=== PATIENT | female | born 1950 | race Caucasian/White ===

== ENCOUNTER 2021-10-21 19:58 | Inpatient (IN) | payer MEDICARE, SELFPAY ==
[2021-10-21] VITALS (8 sets, daily range): BP systolic 94–142; BP diastolic 69–74; PULSE 74–86; RESP 18–20; TEMP 36.9–37.3; O2SAT 82–95; BMI 34.1; BMI 34.3
--- NOTE | 2021-10-21 20:29 | EKG12_ITS ---
Test Reason : COVID Blood Pressure : / mmHG Vent. Rate : 078 BPM Atrial Rate : 078 BPM P-R Int : 144 ms QRS Dur : 084 ms QT Int : 370 ms P-R-T Axes : 027 -21 031 degrees QTc Int : 421 ms Normal sinus rhythm Nonspecific T wave abnormality Poor R wave progression Abnormal ECG Confirmed by JP POLK, CHIKA ([id number]), videotape editor MAGGIE MOSS ([id number]) on 10/25/2021 11:32:05 AM Referred By: JEANINE Confirmed By:CHIKA TRAMMELL MD
[2021-10-21 20:38] LABS: Absolute Lymphocyte Count 0.72 X10^3/uL (0.83-4.51); Absolute Neutrophil Count 5.7 X10^3/uL (2.0-7.7); Basophil# 0.01 X10^3/uL; Basophil% 0.1 % (0-1); Eosinophil# 0.03 X10^3/uL; Eosinophils% 0.4 % (0-5); Hemoglobin 14.1 g/dL (12.0-15.0); Lymphocyte # 0.72 X10^3/ul (0.83-4.51); Lymphocyte % 10.2 % (19-41); Mean Corp Hgb Conc 33.6 g/dL (32-36); Mean Corpuscular Hgb 30.3 pg (27.0-32.0); Mean Corpuscular Volume 90.3 fL (81-99); Mean Platelet Vol. 9.5 fl (6.2-12.0); Monocyte# 0.55 X10^3/uL; Monocyte% 7.8 % (0-10); NRBC Flagged by Analyzer 0 % (0-5); Neutrophil # 5.72 X10^3/uL (2.7-7.7); Neutrophil % 80.9 % (47-70); Platelet Count 153 K/mm3 (150-450); RBC Distribution Width CV 12.5 % (11.6-14.6); RBC Distribution Width SD 41.5 fl (35.1-43.9); Red Blood Count 4.65 M/mm3 (4.2-5.4); White Blood Count 7.1 K/mm3 (4.4-11.0)
--- NOTE | 2021-10-21 20:40 | RAD_ITS ---
STUDY: X-RAY CHEST REASON FOR EXAM: Female, 71 years old. Hypoxia. Bilateral RALES. Cough and shortness of breath and fever. Chest congestion and sore ribs. Question pelvic pneumonia. TECHNIQUE: Single AP portable view of the chest. COMPARISON: 09/30/2012 FINDINGS: Decreased inspiratory effort. There is linear densities at the lung bases can''t be atelectatic or infiltrated. There is no demonstrated pleural abnormality. Normal size heart. Normal mediastinum and terrie. Normal visualized pulmonary arteries. Normal visualized aortic arch and descending thoracic aorta. Normal visualized thoracic spine. Normal visualized ribs, clavicles, and shoulders. There is no demonstrated abnormality of the visualized soft tissue structures of the upper abdomen. RAD/Chest 1 View (Portable) IMPRESSION: Atelectasis versus infiltrate at the lung bases. COVID pneumonia cannot be ruled out Electronically Signed: Robert Vallecillo DO at 20:59 EST Tel [phone], Service support ,
[2021-10-21] MEDS: dexAMETHasone 4 MG Tablet 6 MG PO (20:54)
[2021-10-21 21:04] LABS: ALB/GLOB Ratio 0.8 RATIO (0.9-2.4); AST(SGOT) 30 U/L (15-37); Alanine Aminotransfer ALT/SGPT 27 U/L (13-56); Albumin, Serum 3.2 g/dL (3.2-5.0); Alkaline Phosphatase 115 U/L (45-117); Anion Gap 8 (5-15); BUN 16 mg/dL (7-18); BUN/Creat Ratio 15.4 RATIO (10-20); Chloride 102 mmol/L (98-107); Creatinine, Serum 1.04 mg/dL (0.55-1.02); EST Glomerular Filtration Rate 55 mL/min (>60); Est Glom Filt Rate - Afr Amer 67 mL/min (>60); Estimated Creatinine Clearance 42.22 ml/min; Globulin 3.8 g/dL (2.2-4.2); Glucose 263 mg/dL (74-106); Sodium Level 137 mmol/L (136-145)
[2021-10-21 21:05] LABS: Lactic Acid 1.4 mmol/L (0.4-1.9)
--- NOTE | 2021-10-21 21:09 | EDS_ITS ---
HPI History of Present Illness Chief Complaint: Shortness of Breath Informant: patient and spouse/S.O. Onset/Context/Timing Onset: Days (Onset October 15) Context: sudden Timing: Continuous and Waxes and wanes Quality: Positive for Dyspnea on exertion Current Severity: Mild Maximum Severity: Severe Worsened by: Exertion and Coughing; Not Worsened By Lying flat Relieved by: Nothing Associated Symptoms cough, post nasal drip, ear pain, fever, sore throat and chills; Negative for rhinorrhea, clear sputum, white sputum, yellow sputum or green sputum Chest Pain: Positive for None Narrative Narrative: Patient is a 71-year-old woman with history of hypothyroidism, type 1 diabetes, hypercholesterolemia who presents with upper respiratory symptoms that started 5 to 6 days ago. She has not been vaccinated. She does complain of headache, congestion, postnasal drainage and sore throat. Her cough is nonproductive. She has increased shortness of breath with coughing. He does report nausea. She not had any vomiting or diarrhea recently. She does complain of aches. She is not noted a rash. She has had fluctuating elevated temperature. She denies history of VTE. Denies leg pain, swelling discoloration. PE Risk Factors: Negative for Cancer, OCP + Smoking + > 35, Prior DVT or PE, Recent immobilization, Recent surgery and Recent travel Prior similar symptoms: No Recent Illness/Hospitalization: No PFSH [facility] Medical History Diabetes mellitus, type 2 GERD (gastroesophageal reflux disease) HLD (hyperlipidemia) Hypothyroidism Obesity Home Medications aspirin 81 mg PO QHS 10/21/21 [History Last Taken 10/20/21] levothyroxine [Synthroid] 88 mcg PO DAILY 10/21/21 [History Last Taken 10/21/21] omeprazole 20 mg PO DAILY 10/21/21 [History Last Taken 10/21/21] simvastatin [Zocor] 20 mg PO QHS 10/21/21 [History Last Taken 10/20/21] dexamethasone [Decadron] 6 mg PO DAILY #7 tab 10/23/21 [Rx Last Taken Unknown] doxycycline hyclate 100 mg PO BID #14 cap 10/23/21 [Rx Last Taken Unknown] insulin NPH and regular human 35 unit SUBCUT DAILY #0 ml 10/23/21 [Rx Last Taken 10/21/21] insulin NPH and regular human 35 unit SUBCUT QHS #0 ml 10/23/21 [Rx Last Taken 10/20/21] Allergy/AdvReac Type Severity Reaction Status Date / Time niacin Allergy Hives Verified 10/21/21 20:05 Penicillins Allergy Itching Verified 10/21/21 20:05 ciprofloxacin [From Cipro] AdvReac Other Verified 10/21/21 20:05 Family History (Updated 10/21/21 @ 21:[address] Katya Mares MD) Mother Heart disease Hypertension Myocardial infarction Diabetes Father Heart disease Myocardial infarction Surgical History History of bilateral tubal ligation Social History (Updated 10/21/21 @ 21:[address] Katya Mares MD) household members: significant other Smoking Status: Never smoker alcohol intake: never substance use type: does not use ROS ROS ED Constitutional Constitutional ED: Reports chills and fever(s); Denies weight loss Eyes Eyes: Denies blurry vision, change in vision or diplopia ENT ENT ED: Reports rhinorrhea and sore throat; Denies ear pain Cardiovascular Cardiovascular: Denies chest pain, orthopnea, palpitations or paroxysmal nocturnal dyspnea Respiratory/Chest Respiratory/Chest: Reports cough, dyspnea and dyspnea on exertion; Denies orthopnea, paroxysmal nocturnal dyspnea or sputum Gastrointestinal Gastrointestinal: Reports nausea; Denies abdominal pain, diarrhea or vomiting Genitourinary Genitourinary ED: Denies dysuria, hematuria or urinary frequency Musculoskeletal Musculoskeletal: Reports arthralgias and myalgias; Denies back pain or neck pain Integumentary Denies rash Neurologic Neurologic: Reports headache(s) and weakness; Denies paresthesias Endocrine Endocrinology: Denies polydipsia, polyphagia or polyuria Hematologic/Lymphatic Hematologic/Lymphatic: Denies easy bleeding or easy bruising EXAM Physical Exam Const Vital Signs: 10/21/21 19:59 10/21/21 20:03 10/21/21 20:22 Temperature 98.7 F 98.7 F Temperature Source Temporal Temporal Pulse Rate 86 86 Respiratory Rate 20 H 20 H Respiratory Effort Respiratory Depth Respiratory Pattern Blood Pressure 94/73 94/73 Blood Pressure Mean 80 80 Pulse Ox 87 87 95 Oxygen Delivery Method Room Air Room Air Nasal Cannula Oxygen Flow Rate (L/min) 3 10/21/21 20:23 10/21/21 20:24 Temperature Temperature Source Pulse Rate Respiratory Rate Respiratory Effort Normal Non-Labored Respiratory Depth Normal Respiratory Pattern Normal Blood Pressure 142/74 H Blood Pressure Mean 96 Pulse Ox Oxygen Delivery Method Nasal Cannula Oxygen Flow Rate (L/min) 3 Positive well nourished, well developed and obese General Appearance ED: well developed and other Patient was cyanotic with initial pulse ox of 83% per nurse who brought her back from the waiting room. She was placed on oxygen. ; Negative for NAD or pallor Nutritional Appearance: obese HEENT Reports TM's clear and dry mucous membranes HEENT Narrative: Mild erythema of the posterior pharynx. Uvula midline. No exudate. Negative for tenderness Tympanic Membrane ED: Yes TM's clear Mouth ED: Yes dry mucous membranes Mouth: dry mucous membranes Eyes PERRL and EOMs intact bilaterally General Eye ED: Negative for pale conjunctiva or scleral icterus Neck no lymphadenopathy, supple, no meningeal signs and no JVD Resp No normal respiratory effort and No clear to auscultation bilaterally Auscultation: rales diffuse; Negative for wheezes Cardio regular rate, regular rhythm, S1 normal heart sound, S2 normal heart sound and no murmurs GI non-tender, non-distended and no masses Auscultation: normoactive bowel sounds Palpation: soft Back/Spine no CVA tenderness and normal to inspection Extremity normal to inspection General Extremety ED: Negative for edema or tenderness General Extremity: Negative for edema Neuro oriented x3, CN's II-XII intact bilaterally and no sensory deficits noted [place] Coma Scale: document GCS findings Spontaneous Obeys Commands Oriented 15 Sensorium / Orientation: alert Motor Exam: strength 5/5 throughout Psych mental status grossly normal Thought Process: normal thought process Skin no wounds General Skin Exam: Negative for jaundice or pallor Lesions: no lesions Rashes: no rashes MDM MDM MDM Narrative Medical decision making narrative: Patient has pneumonia. Suspect COVID- pneumonia. Will obtain appropriate work-up to determine if this is COVID versus bacterial. Patient was initially hypotensive. Suspect that she is orthostatic due to poor p.o. intake because the low blood pressure when she was sitting and the repeat blood pressure when she was supine. Fluid bolus was ordered. Since there is concern for COVID only 500 cc was ordered. 6 mg of Decadron was ordered Lab Data Labs: Laboratory Results - last 24 hr 10/21/21 10/21/21 10/21/21 20:26 20:26 20:26 WBC 7.1 RBC 4.65 Hgb 14.1 Hct 42.0 MCV 90.3 MCH 30.3 MCHC 33.6 RDW Std Deviation 41.5 RDW Coeff of Kyle 12.5 Plt Count 153 MPV 9.5 Immature Gran % (Auto) 0.600 Neut % (Auto) 80.9 H Lymph % (Auto) 10.2 L [place] % (Auto) 7.8 Eos % (Auto) 0.4 Baso % (Auto) 0.1 Absolute Neuts (auto) 5.7 Absolute Lymphs (auto) 0.72 L Nucleated RBC % 0 Sodium 137 Potassium 4.0 Chloride 102 Carbon Dioxide 27.0 Anion Gap 8 BUN 16 Creatinine 1.04 H Estim Creat Clear Calc 42.22 Est GFR (MDRD) Af Amer 67 Est GFR (MDRD) Non-Af 55 L BUN/Creatinine Ratio 15.4 Glucose 263 H Lactic Acid 1.4 Calcium 10.0 Total Bilirubin 1.00 AST 30 ALT 27 Alkaline Phosphatase 115 Total Protein 7.0 Albumin 3.2 Globulin 3.8 Albumin/Globulin Ratio 0.8 L COVID test is positive. Radiography Chest X-Ray - ED: 1 View (Single view chest x-ray reveals bilateral lower lobe infiltrates left greater than right. The heart border is obscured. Heart size is normal. Osseous structures appear normal. There is no abnormality of the perihilar region.) Diagnostic Testing: Clinical Impression(s) from Imaging Studies Chest X-Ray 10/21/21 20:40 IMPRESSION: Atelectasis versus infiltrate at the lung bases. COVID pneumonia cannot be ruled out Electronically Signed: Robert Vallecillo DO at 20:59 EST Tel [phone], Service support , EKG Initial EKG: Attestation: I personally reviewed and interpreted this EKG as follows: Interpretation: Sinus Rhythm (Ventricular rate of 78. UT interval is under 48 ms. 84 ms QRS duration QT duration 3 and 70 ms. [place] is normal. There is nonspecific changes noted with no acute ischemic changes noted.) Discharge Plan Dx/Rx/DC Orders Clinical Impression: Pneumonia due to 2019-nCoV, Acute respiratory failure with hypoxia, Acute hypotension, Hyperglycemia due to type 1 diabetes mellitus Disposition Disposition: Acute Care Hospital [facility]
--- NOTE | 2021-10-21 21:20 | PCM.HP.STD ---
HPI - General General Date of Admission: 10/21/21 Date of Service: 10/21/21 Chief Complaint: COVID symptoms, dyspnea. HPI Narrative The patient is a 71 y/o F w/ PMHx: Hypothyroidism, HLD, Diabetes mellitus type II, GERD who presents to the [facility] ED on 10/21/21 with history of onset starting 10/15/2021 fatigue, malaise, congestion with postnasal drip, fever, chills, sore throat, cough and dyspnea, worse with exertion and dyspnea breath associated pleuritic chest discomfort with decreased sense of taste without any N/V/D prompting eventual ED evaluation. Patient is not vaccinated against COVID-19. Recently started on azithromycin 10/19/21 without improvement of her symptoms. Patient on day of presentation denies having really eaten anything during the day with decreased appetite but is amenable to eating given her diabetic history. Work-up in the ED included T98.7, heart rate 86, BP 94/73, respiratory rate 20, 82 to 87% on room air with improvement to 95% on 3 L nasal cannula, CBC with WC 7.1, hemoglobin 14.1, platelet 153 with lymphopenia, CMP with BUN/creatinine 16/1.04, glucose 263, lactic acid 1.4, unremarkable appearing hepatic profile, rapid COVID antigen positive, chest x-ray with bilateral infiltrates at lung bases. In the ED patient ministered Decadron 6 mg p.o. x1 as well as a normal saline bolus. [facility] Medical History (Updated 10/21/21 @ 21:[address] Katya Mares MD) Diabetes mellitus, type 2 GERD (gastroesophageal reflux disease) HLD (hyperlipidemia) Hypothyroidism Obesity Home Medications aspirin 81 mg PO DAILY 10/21/21 [History Last Taken Unknown] insulin NPH and regular human [Humulin 70/30 Insulin Pen] 25 unit SUBCUT QHS 10/21/21 [History Last Taken Unknown] insulin NPH and regular human [Humulin 70/30 Insulin Pen] 30 unit SUBCUT DAILY 10/21/21 [History Last Taken Unknown] levothyroxine [Synthroid] 88 mcg PO DAILY 10/21/21 [History Last Taken Unknown] omeprazole [Prilosec] 20 mg PO DAILY 10/21/21 [History Last Taken Unknown] simvastatin [Zocor] 20 mg PO DAILY 10/21/21 [History Last Taken Unknown] Allergy/AdvReac Type Severity Reaction Status Date / Time niacin Allergy Hives Verified 10/21/21 20:05 Penicillins Allergy Itching Verified 10/21/21 20:05 ciprofloxacin [From Cipro] AdvReac Other Verified 10/21/21 20:05 Family History (Updated 10/21/21 @ 21:[address] Katya Mares MD) Mother Heart disease Hypertension Myocardial infarction Diabetes Father Heart disease Myocardial infarction Surgical History (Updated 10/21/21 @ 21:[address] Katya Mares MD) History of bilateral tubal ligation Social History (Updated 10/21/21 @ 21:[address] Katya Mares MD) household members: significant other Smoking Status: Never smoker alcohol intake: never substance use type: does not use ROS ROS Narrative Admission Review of Systems: CONSTITUTIONAL: No weight loss, + fever, chills, weakness or fatigue. HEENT: + Sore throat, congestion with postnasal drip, decree sense of taste. Eyes: No visual loss, blurred vision, double vision or yellow sclerae. Ears, Nose, Throat: No hearing loss, sneezing. SKIN: No rash or itching, lesions, wounds. CARDIOVASCULAR: + Pleuritic chest discomfort. No palpitations, edema, orthopnea, syncopal events. RESPIRATORY: + shortness of breath, cough, No marked sputum, wheezing, hemoptysis. GASTROINTESTINAL: + anorexia, No nausea, vomiting, diarrhea, abdominal pain, melena, BRBPR. GENITOURINARY: No dysuria, frequency, urgency or retention. NEUROLOGICAL: No headache, dizziness, syncope, paralysis, ataxia, numbness or tingling in the extremities, focal weakness, change in bowel or bladder control, seizure. MUSCULOSKELETAL: + muscle, back pain, joint pain or stiffness. HEMATOLOGIC: No anemia, bleeding or bruising. LYMPHATICS: No enlarged nodes. No history of splenectomy. PSYCHIATRIC: No history of depression or anxiety. ENDOCRINOLOGIC: No reports of sweating, cold or heat intolerance. No polyuria or polydipsia. ALLERGIES: No history of asthma, hives, eczema or rhinitis. Vital Signs Vital Signs Vital Signs: 10/21/21 19:59 10/21/21 20:03 10/21/21 20:22 Temperature 98.7 F 98.7 F Temperature Source Temporal Temporal Pulse Rate 86 86 Respiratory Rate 20 H 20 H Respiratory Effort Respiratory Depth Respiratory Pattern Blood Pressure 94/73 94/73 Blood Pressure Mean 80 80 Pulse Ox 87 87 95 Oxygen Delivery Method Room Air Room Air Nasal Cannula Oxygen Flow Rate (L/min) 3 10/21/21 20:23 10/21/21 20:24 Temperature Temperature Source Pulse Rate Respiratory Rate Respiratory Effort Normal Non-Labored Respiratory Depth Normal Respiratory Pattern Normal Blood Pressure 142/74 H Blood Pressure Mean 96 Pulse Ox Oxygen Delivery Method Nasal Cannula Oxygen Flow Rate (L/min) 3 Weight Weight: 199 lb Body Mass Index (BMI) 34.1 Physical Exam Narrative Physical Examination: General: Awake, alert, oriented x 3 and cooperative, seated upright in the ED bed, fatigued and ill-appearing, no evidence of any respiratory distress. Skin: Normal color, normal turgor, no icterus, no cyanosis. HEENT: AT/NC, EOMI, PERRLA, moderately dry MM, no carotid bruits or JVD noted. Lungs: Diffusely diminished, greater bases, coughing elicited with deep inspiratory effort, moderately decreased effort, no rales, ronchi or wheezing. Heart: Regular rate with regular rhythm; no gallop, rub audible. Abdomen: Soft, obese, NTTP, ND, mildly hyperactive distant bowel sounds, no obvious HSM. Extremities: No cyanosis, clubbing, or edema. Neurological: Patient awake, alert, oriented as noted, cognitive function intact; pupils equally reactive to light and accommodation, cranial nerves II-XII grossly normal, moving all 4 extremities, no focal deficits, strength severely globally decreased secondary to acute presentation. Psychiatric: Affect appears fatigued, ill-appearing, no acute evidence of depressive or anxiety feelings. Results Lab / Micro Data Result Diagrams: 10/21/21 20:26 10/21/21 20:26 Labs: Laboratory Results - last 24 hr 10/21/21 20:26: WBC 7.1, RBC 4.65, Hgb 14.1, Hct 42.0, MCV 90.3, MCH 30.3, MCHC 33.6, RDW Std Deviation 41.5, RDW Coeff of Kyle 12.5, Plt Count 153, MPV 9.5, Immature Gran % (Auto) 0.600, Neut % (Auto) 80.9 H, Lymph % (Auto) 10.2 L, [place] % (Auto) 7.8, Eos % (Auto) 0.4, Baso % (Auto) 0.1, Absolute Neuts (auto) 5.7, Absolute Lymphs (auto) 0.72 L, Nucleated RBC % 0 10/21/21 20:26: Sodium 137, Potassium 4.0, Chloride 102, Carbon Dioxide 27.0, Anion Gap 8, BUN 16, Creatinine 1.04 H, Estim Creat Clear Calc 42.22, Est GFR (MDRD) Af Amer 67, Est GFR (MDRD) Non-Af 55 L, BUN/Creatinine Ratio 15.4, Glucose 263 H, Calcium 10.0, Total Bilirubin 1.00, AST 30, ALT 27, Alkaline Phosphatase 115, Total Protein 7.0, Albumin 3.2, Globulin 3.8, Albumin/Globulin Ratio 0.8 L 10/21/21 20:26: Lactic Acid 1.4 Micro: Microbiology 10/21/21 20:21 Nasal Secretion SARS-CoV-2 Antigen (Rapid) - Final SARS-CoV-2 (COVID 19) Radiology Impression Chest X-Ray 10/21/21 20:40 IMPRESSION: Atelectasis versus infiltrate at the lung bases. COVID pneumonia cannot be ruled out Electronically Signed: Robert Vallecillo DO at 20:59 EST Tel [phone], Service support , Assessment & Plan Assessment/Plan (1) Pneumonia due to 2019-nCoV: (2) Hypoxia: PLAN: The patient is a 71 y/o F w/ PMHx: Hypothyroidism, HLD, Diabetes mellitus type II, GERD who presents to the [facility] ED on 10/21/21 with history of onset starting 10/15/2021 fatigue, malaise, congestion with postnasal drip, fever, chills, sore throat, cough and dyspnea, worse with exertion and dyspnea breath associated pleuritic chest discomfort with decreased sense of taste without any N/V/D prompting eventual ED evaluation. #1. Acute Hypoxia secondary to Acute Bilateral Pneumonia secondary to Acute Viral Syndrome, COVID-19: Will admit to the GA telemetry, maintain on COVID precautions, will maintain on oxygen with wean as tolerated to room air, PRN albuterol, HOB, IS parameters w/ pending sputum cultures and urine antigens, will obtain D-dimer, procalcitonin, CRP, CPK, Ferritin, LDH, trop and BNP, continue supportive care including q 2 hour turning including prone given no prone bed availability and judicious hydration, closely monitor for worsening status for ARDS and multiorgan failure, will initiate and continue IV decadron x 10 doses, given presentation timeline and creatinine clearance greater than 30 will also initiate IV remdesivir but defer to discretion of Infectious disease. If respiratory status worsens and patient requires airvo or BIPAP transition will initiate barcitinib regimen additionally with ID involvement. #2. Diabetes mellitus type II: Hold oral home regimen, continue home insulin regimen, ADA diet, accu checks w/ ISS. #3. Hypothyroidism: Continue home synthroid regimen levothyroxine regimen. #4. Hyperlipidemia: Continue home statin regimen. #5. GERD: We will continue patient on PPI. #6. Obesity: Weight loss and lifestyle changes encouraged. #7. DVT prophylaxis: SCDs, Lovenox. #8. CODE status: Patient SHERIOA is her son Tej and living will is in place. Discussed CODE status at length including difference between FULL code, DNR-CCA and DNR-CC status. Following discussions about the differences in these status, requested Full Code status. Patient amenable to airvo, BIPAP, remdesivir and barcitinib if needed and appropriate. Advanced Care Planning Face to Face Time: 16 minutes. Charges/Coding Visit Charges Inpatient E&M: 45620 Init Hosp L3 Procedures Hospitalists Procedures: 92438 Advncd Care Plan 30 Min
[2021-10-21 22:03] LABS: BNP,B-Type NATRIURETIC PEPTIDE 18.4 pg/mL (0-100); Ferritin 154 ng/mL (8-252); LDH 351 U/L (84-246); Phosphorus 2.1 mg/dL (2.5-4.9); Troponin-I HS 6 pg/mL (3.0-54.0)
[2021-10-21 22:11] LABS: Procalcitonin < 0.04 ng/mL (0.00-0.09)
[2021-10-21 22:45] LABS: D-Dimer Quantitative (DVT/PE) 1.97 FEU/ug/m (0.27-0.49)
--- NOTE | 2021-10-21 22:48 | CT_ITS ---
STUDY: CTA CHEST REASON FOR EXAM: Female, 71 years old. Suspected PE. Cough, fever, shortness of breath and elevated d-dimer. Positive COVID. RADIATION DOSAGE (If Supplied By Facility): CTDIvol = ( 12.55 ) mGy, DLP = ( 467.40 ) mGycm TECHNIQUE: The examination was performed with the intravenous administration of IV 100mL Isovue-370. Post-processing of the angiographic images was performed, with multiplanar reformation and 3D reconstruction. Individualized dose optimization techniques were used for this CT. COMPARISON: Chest, 10/21/2021. FINDINGS: Normal enhancement of the main pulmonary artery and right and left pulmonary arteries. Normal enhancement of the bilateral peripheral pulmonary arteries. There is no demonstrated pulmonary embolism. There is mild tortuosity of the thoracic aorta without aneurysm. There is no demonstrated aortic dissection. Normal heart and pericardium. There are calcifications of the coronary arteries. Normal mediastinum. Normal hilar regions. Normal visualized trachea and bronchi. The lungs are well expanded. There is patchy peripheral groundglass infiltrates throughout both lungs. There is no consolidation or mass. Normal pleura. Normal chest wall structures. Normal osseous structures. Normal visualized upper abdomen. CT/CTA Chest W/WO Contrast IMPRESSION: 1. No evidence of pulmonary embolus. 2. No aortic dissection or aneurysm. 3. Peripheral groundglass pulmonary infiltrates compatible with COVID pneumonia. Electronically Signed: Robert Vallecillo DO at 23:33 EST Tel [phone], Service support ,
[2021-10-22] VITALS (14 sets, daily range): BP systolic 100–157; BP diastolic 62–67; PULSE 59–77; RESP 16–22; TEMP 36.6–37; O2SAT 85–96
[2021-10-22] MEDS: 0.9% Normal Saline 1,000 ML 100 ML IV
[2021-10-22] MEDS: Insulin Lispro 100 UNIT/ML INSULN.PEN SC ×5 (00:01→23:16)
[2021-10-22] MEDS: Enoxaparin 30 MG/0.3 ML Syringe SC ×3 (00:01→21:40)
[2021-10-22] MEDS: Pantoprazole Sodium 20 MG Tablet PO ×2 (00:07→10:29)
[2021-10-22 00:15] LABS: Bedside Glucose 249 mg/dL (70-110)
[2021-10-22] MEDS: Na Biphos/Potassium Phosphate PACKET 1 PACKET PO ×3 (05:30→21:40)
[2021-10-22 06:10] LABS: Bedside Glucose 279 mg/dL (70-110)
[2021-10-22 06:30] LABS: Absolute Lymphocyte Count 0.41 X10^3/uL (0.83-4.51); Absolute Neutrophil Count 4.9 X10^3/uL (2.0-7.7); Basophil# 0.01 X10^3/uL; Basophil% 0.2 % (0-1); Hematocrit 38.1 % (37-47); Hemoglobin 12.7 g/dL (12.0-15.0); Lymphocyte # 0.41 X10^3/ul (0.83-4.51); Lymphocyte % 7.3 % (19-41); Mean Corp Hgb Conc 33.3 g/dL (32-36); Mean Corpuscular Volume 90.1 fL (81-99); Mean Platelet Vol. 9.9 fl (6.2-12.0); Monocyte# 0.31 X10^3/uL; Monocyte% 5.5 % (0-10); NRBC Flagged by Analyzer 0 % (0-5); Neutrophil # 4.86 X10^3/uL (2.7-7.7); Neutrophil % 86.3 % (47-70); POSITIVE DIFFERENTIAL YES; Platelet Count 153 K/mm3 (150-450); RBC Distribution Width CV 12.6 % (11.6-14.6); RBC Distribution Width SD 41.3 fl (35.1-43.9); Red Blood Count 4.23 M/mm3 (4.2-5.4); White Blood Count 5.6 K/mm3 (4.4-11.0)
[2021-10-22 06:45] LABS: Differential Indicated SCAN CRITERIA MET
[2021-10-22 06:54] LABS: ALB/GLOB Ratio 0.7 RATIO (0.9-2.4); AST(SGOT) 26 U/L (15-37); Alanine Aminotransfer ALT/SGPT 23 U/L (13-56); Albumin, Serum 2.7 g/dL (3.2-5.0); Alkaline Phosphatase 100 U/L (45-117); Anion Gap 5 (5-15); BUN 14 mg/dL (7-18); BUN/Creat Ratio 15.2 RATIO (10-20); Calcium,Total 9.7 mg/dL (8.5-10.1); Chloride 108 mmol/L (98-107); Creatinine, Serum 0.92 mg/dL (0.55-1.02); EST Glomerular Filtration Rate 64 mL/min (>60); Est Glom Filt Rate - Afr Amer 77 mL/min (>60); Estimated Creatinine Clearance 47.73 ml/min; Globulin 3.8 g/dL (2.2-4.2); Glucose 265 mg/dL (74-106); Potassium 4.4 mmol/L (3.5-5.1); Protein, Total 6.5 g/dL (6.4-8.2); Sodium Level 138 mmol/L (136-145)
--- NOTE | 2021-10-22 07:11 | PCS.PANDOC ---
PANDEMIC DOCUMENTATION INITIATED: Date: 05/24/2021 Time: 190
--- NOTE | 2021-10-22 07:27 | PCM.PN.HOSP ---
Subjective Subjective Patient is a 71-year-old lady unvaccinated against COVID-19 presented to the emergency department with cough shortness of breath and low-grade fever. Patient symptoms started a week prior to her admission. Tested positive for COVID in the emergency department Objective Data Objective Data Vital Signs: Vital Signs Temp Pulse Resp BP Pulse Ox 98.2 F 64 16 100/65 93 10/22/21 05:27 10/22/21 05:27 10/22/21 05:27 10/22/21 05:27 10/22/21 07:26 Oxygen Flow Rate (L/min) 2 Oxygen Delivery Method Nasal Cannula Weight: 90.718 kg Body Mass Index (BMI) 34.3 Intake & Output: Intake and Output for Last 24 Hours 10/20/21 10/21/21 10/22/21 23:59 23:59 23:59 Intake Total 500 / 500 361.67 / 361.67 Output Total 500 / 500 Balance 500 / 500 -138.33 / -138.33 Lab / Micro Data Result Diagrams: 10/22/21 06:05 10/22/21 06:05 Labs: Laboratory Results - last 24 hr 10/21/21 20:26: WBC 7.1, RBC 4.65, Hgb 14.1, Hct 42.0, MCV 90.3, MCH 30.3, MCHC 33.6, RDW Std Deviation 41.5, RDW Coeff of Kyle 12.5, Plt Count 153, MPV 9.5, Immature Gran % (Auto) 0.600, Neut % (Auto) 80.9 H, Lymph % (Auto) 10.2 L, [place] % (Auto) 7.8, Eos % (Auto) 0.4, Baso % (Auto) 0.1, Absolute Neuts (auto) 5.7, Absolute Lymphs (auto) 0.72 L, Nucleated RBC % 0 10/21/21 20:26: Sodium 137, Potassium 4.0, Chloride 102, Carbon Dioxide 27.0, Anion Gap 8, BUN 16, Creatinine 1.04 H, Estim Creat Clear Calc 42.22, Est GFR (MDRD) Af Amer 67, Est GFR (MDRD) Non-Af 55 L, BUN/Creatinine Ratio 15.4, Glucose 263 H, Calcium 10.0, Total Bilirubin 1.00, AST 30, ALT 27, Alkaline Phosphatase 115, Total Protein 7.0, Albumin 3.2, Globulin 3.8, Albumin/Globulin Ratio 0.8 L 10/21/21 20:26: Lactic Acid 1.4 10/21/21 20:26: Phosphorus 2.1 L, Magnesium 2.0, Ferritin 154, Lactate Dehydrogenase 351 H, Troponin I High Sens 6, C-React Prot Ext Range 20.50 H 10/21/21 20:26: B-Natriuretic Peptide 18.4 10/21/21 20:26: Procalcitonin < 0.04 10/21/21 22:00: D-Dimer Quant (PE/DVT) 1.97 H* 10/21/21 23:57: POC Glucose 249 H 10/22/21 05:24: POC Glucose 279 H 10/22/21 06:05: WBC 5.6, RBC 4.23, Hgb 12.7, Hct 38.1, MCV 90.1, MCH 30.0, MCHC 33.3, RDW Std Deviation 41.3, RDW Coeff of Kyle 12.6, Plt Count 153, MPV 9.9, Immature Gran % (Auto) 0.700, Neut % (Auto) 86.3 H, Lymph % (Auto) 7.3 L, Hardeman % (Auto) 5.5, Eos % (Auto) 0.0, Baso % (Auto) 0.2, Absolute Neuts (auto) 4.9, Absolute Lymphs (auto) 0.41 L, Nucleated RBC % 0 10/22/21 06:05: Sodium 138, Potassium 4.4, Chloride 108 H, Carbon Dioxide 25.0, Anion Gap 5, BUN 14, Creatinine 0.92, Estim Creat Clear Calc 47.73, Est GFR (MDRD) Af Amer 77, Est GFR (MDRD) Non-Af 64, BUN/Creatinine Ratio 15.2, Glucose 265 H, Calcium 9.7, Total Bilirubin 0.60, AST 26, ALT 23, Alkaline Phosphatase 100, Total Protein 6.5, Albumin 2.7 L, Globulin 3.8, Albumin/Globulin Ratio 0.7 L Micro: Microbiology 10/22/21 02:45 Urine, Clean Catch Legionella Antigen - Final 10/22/21 02:45 Urine, Clean Catch Streptococcus pneumoniae Antigen (M - Final 10/21/21 20:21 Nasal Secretion SARS-CoV-2 Antigen (Rapid) - Final SARS-CoV-2 (COVID 19) Radiography Diagnostic Testing: Radiology Impression Chest X-Ray 10/21/21 20:40 IMPRESSION: Atelectasis versus infiltrate at the lung bases. COVID pneumonia cannot be ruled out Electronically Signed: Robert Vallecillo DO at 20:59 EST Tel [phone], Service support , Chest CTA 10/21/21 22:48 IMPRESSION: 1. No evidence of pulmonary embolus. 2. No aortic dissection or aneurysm. 3. Peripheral groundglass pulmonary infiltrates compatible with COVID pneumonia. Electronically Signed: Robert Vallecillo DO at 23:33 EST Tel [phone], Service support , Physical Exam Narrative GENERAL: cooperative HEENT: Atraumatic; EYES; Anicteric, Normal Conjunctiva NECK; supple, normal thyroid, RESPIRATORY: Diminished to auscultation CARDIOVASCULAR: Regular S1 S2, GI: soft, normoactive bowel sounds, : No Renal angle tenderness; EXTREMITIES: No edema, no clubbing, MUSCULOSKELETAL: no muscle waisting NEURO: Awake; no lateralizing signs. SKIN: No Rash PSYCH; Flat affect Assessment & Plan Assessment/Plan (1) Pneumonia due to 2019-nCoV: (2) Hypoxia: PLAN: Patient is a 71-year-old lady unvaccinated against COVID-19 presented to the emergency department with cough shortness of breath and low-grade fever. Patient symptoms started a week prior to her admission. Tested positive for COVID in the emergency department 1. Acute hypoxic respiratory failure ? Secondary to COVID-19 pneumonia. Patient has been admitted to regular nursing floor currently being managed with Decadron as well as remdesivir. Patient progress being monitored with markers of inflammation 2. Diabetes mellitus type II -patient's oral hypoglycemics held. Placed on long acting insulin, Accu-Cheks a.c. and at bedtime and covered with sliding scale insulin 3. Hypothyroidism - Patient is on levothyroxine home dose continued 4. Dyslipidemia ? Patient is on simvastatin at home dose to be switched to atorvastatin based on pharmacy policy 5. GERD ? On PPI did continue 6. Class I obesity with BMI of 34.3 ? Weight loss advised 7. DVT prophylaxis -[place] Lovenox Charges/Coding Visit Charges Inpatient E&M: 02983 Subs Hosp L3
[2021-10-22] MEDS: dexAMETHasone 4 MG/ML Vial 6 MG IV (10:28)
[2021-10-22] MEDS: 0.9% Saline Lock 10 ML Syringe IV ×3 (10:29→12:24)
[2021-10-22] MEDS: Insulin Human 75/25 Kwickpen 30 UNIT SC (10:29)
[2021-10-22] MEDS: Levothyroxine 88 MCG Tablet PO (10:29)
[2021-10-22] MEDS: Aspirin 81 MG TAB.CHEW PO (10:29)
--- NOTE | 2021-10-22 12:05 | CASEMGMT ---
RN CM [employer] OFFICE MANAGER MATTHIAS spoke w/patient for initial transition planning/care coordination assessment. RN MATTHIAS introduced self and role at [facility]. Pt voices understanding and consents to assessment at this time. Pt is A/O at this time and answers all questions appropriately. Care providers, pharmacy, and demographics verified/updated at this time. COVID +. Tested @ [facility]. PCP: Dr Mireles Specialists: none Preferred Pharmacy: [facility] Retail Insurance: [employer] Prescription Benefit: Yes Living Will/HPOA: Has both. SonFernie, is HPOA LNOK: SonFernie. Sig Other, Rui Living Arrangements: Lives w/sig other, Rui, and his 16-yr-old grandson. They live in 2-story home w/5 steps to enter. She denies having difficulty w/stairs. Independent w/ADL's and IADL's. Pt does most home mgmt tasks and manages her own medications and appts. Rui has not been ill/has had no s/sx's of COVID. He has taken home COVID test and it was negative. His grandson had COVID about 4 months ago and is not having any s/sx's of COVID now. Reviewed importance of isolating when returning home. She states there is a separate bedroom and separate bathroom for her to use. Transportation: Pt states drives self and states no transportation concerns at this time. Rui also drives and will pick her up @ d/c DME: States has the following DME: pulse ox, BP cuff, functioning glucometer w/supplies. Pt does not have home O2. Pt denies having preference of DME shellie. Reviewed home O2 set up process and pt voices understanding. HHC/SNF: No history of either. No needs identified. Pt wishes to return home and states has no concerns with going home at time of discharge. CM to follow for home oxygen needs and any discharge planning/needs. Pt voices no concerns/needs at this time. Advised pt to ask for CM if any questions/concerns/needs arise. Voices understanding. PLAN: Home w/sig other support and discharge plans in place. Follow for any Home O2 needs @ discharge. Cholo GO RN, CM
[2021-10-22 14:05] LABS: Bedside Glucose 204 mg/dL (70-110)
[2021-10-22 17:45] LABS: Bedside Glucose 266 mg/dL (70-110)
[2021-10-22] MEDS: Atorvastatin Calcium 10 MG Tablet PO (21:40)
[2021-10-22] MEDS: Acetaminophen 325 MG Tablet 650 MG PO (21:47)
[2021-10-22] MEDS: Insulin Human 75/25 Kwickpen 25 UNIT SC (23:14)
[2021-10-22 23:25] LABS: Bedside Glucose 196 mg/dL (70-110)
[2021-10-23] VITALS (9 sets, daily range): BP systolic 95–114; BP diastolic 58–83; PULSE 46–67; RESP 15–18; TEMP 36.6; O2SAT 79–98
[2021-10-23] MEDS: Na Biphos/Potassium Phosphate PACKET 1 PACKET PO (06:35)
--- NOTE | 2021-10-23 06:46 | NURSING ---
AWAKE IN BED. POX ON 2L N/C =93-94% POX ON RA =92% POX WHILE AMBULATING ON RA= DROPPED TO 79-80% REAPPLIED 02 @ 2L N/C: POX WITH AMBULATION -92% POX ON 2L N/C AT REST BACK IN BED =93%
[2021-10-23 07:05] LABS: Bedside Glucose 73 mg/dL (70-110)
--- NOTE | 2021-10-23 07:36 | DS.PCM_ITS ---
Providers Date of Admission: 10/21/21 Primary Care Physician: Dr. Dave Mireles, DO Reason For Visit: COVID PNA, HYPOXIA Diagnosis Discharge Diagnosis (1) Pneumonia due to 2019-nCoV: Status: Acute Code(s): U07.1 - COVID-19; J12.82 - Pneumonia due to coronavirus disease 2019 (2) Hypoxia: Status: Acute Code(s): R09.02 - Hypoxemia Medications at Discharge Home Medications aspirin 81 mg PO QHS 10/21/21 levothyroxine [Synthroid] 88 mcg PO DAILY 10/21/21 omeprazole 20 mg PO DAILY 10/21/21 simvastatin [Zocor] 20 mg PO QHS 10/21/21 dexamethasone [Decadron] 6 mg PO DAILY #7 tab 10/23/21 doxycycline hyclate 100 mg PO BID #14 cap 10/23/21 insulin NPH and regular human 35 unit SUBCUT DAILY #0 ml 10/23/21 insulin NPH and regular human 35 unit SUBCUT QHS #0 ml 10/23/21 Hospital Course Summary of Care Provided Minutes Spent on Discharge: 35 Hospital Course: Patient is a 71-year-old lady unvaccinated against COVID-19 presented to the emergency department with cough shortness of breath and low- grade fever. Patient symptoms started a week prior to her admission. Tested positive for COVID in the emergency department 1. Acute hypoxic respiratory failure ? Secondary to COVID-19 pneumonia. Patient has been admitted to regular nursing floor currently being managed with Decadron as well as remdesivir. Patient progress being monitored with markers of inflammation -10/23/2021. Patient condition has remained stable since admission. She was assessed for home oxygen which she did qualify she would need portability since she is active both at home as well as in the community. Patient was sent home with Decadron as well as doxycycline for 7 days 2. Diabetes mellitus type II -patient's oral hypoglycemics held. Placed on long acting insulin, Accu-Cheks a.c. and at bedtime and covered with sliding scale insulin 3. Hypothyroidism - Patient is on levothyroxine home dose continued 4. Dyslipidemia ? Patient is on simvastatin at home dose to be switched to atorvastatin based on pharmacy policy 5. GERD ? On PPI did continue 6. Class I obesity with BMI of 34.3 ? Weight loss advised 7. DVT prophylaxis -[place] Lovenox Physical Exam Narrative GENERAL: cooperative HEENT: Atraumatic; EYES; Anicteric, Normal Conjunctiva NECK; supple, normal thyroid, RESPIRATORY: Diminished to auscultation CARDIOVASCULAR: Regular S1 S2, GI: soft, normoactive bowel sounds, : No Renal angle tenderness; EXTREMITIES: No edema, no clubbing, MUSCULOSKELETAL: no muscle waisting NEURO: Awake; no lateralizing signs. SKIN: No Rash PSYCH; Flat affect Weight / BMI Weight Weight: 90.6 kg Body Mass Index (BMI) 34.3 ABG / Lab / Microbiology Data Result Diagrams: 10/22/21 06:05 10/22/21 06:05 Laboratory: Laboratory Results - last 24 hr 10/22/21 12:19: POC Glucose 204 H 10/22/21 17:36: POC Glucose 266 H 10/22/21 23:12: POC Glucose 196 H 10/23/21 06:33: POC Glucose 73 Microbiology: Microbiology 10/22/21 02:45 Urine, Clean Catch Legionella Antigen - Final 10/22/21 02:45 Urine, Clean Catch Streptococcus pneumoniae Antigen (M - Final 10/21/21 20:21 Nasal Secretion SARS-CoV-2 Antigen (Rapid) - Final SARS-CoV-2 (COVID 19) D/C Instructions Discharge Diet: 1800 Calorie Control Diet Discharge Activity: Return to Normal Activity Call your doctor if you observe: Fever of 101 or Higher, Shortness of breath, Fainting spells and Chest pain Meaningful Use Info Meaningful Use Diagnoses (Choose all that apply): None applicable Discharge Plan Admission Admit Date/Time: 10/21/21 21:27 Attending Provider: Aubrey Jacobo Primary Care Provider: Dave Mireles Discharge Orders/Prescriptions Prescriptions: New doxycycline hyclate 100 mg capsule 100 mg PO BID Qty: 14 RF: 0 dexamethasone [Decadron] 6 mg tablet 6 mg PO DAILY Qty: 7 RF: 0 Continued levothyroxine [Synthroid] 88 mcg Tablet 88 mcg PO DAILY RF: 0 simvastatin [Zocor] 20 mg Tablet 20 mg PO QHS RF: 0 omeprazole 20 mg Capsule,Delayed Release(Dr/Ec) 20 mg PO DAILY RF: 0 aspirin 81 mg Capsule 81 mg PO QHS RF: 0 Changed insulin NPH and regular human 100 unit/mL (70-30) Insulin Pen 35 unit SUBCUT QHS Qty: 0 RF: 0 insulin NPH and regular human 100 unit/mL (70-30) Insulin Pen 35 unit SUBCUT DAILY Qty: 0 RF: 0 Referrals / Follow Up: Dave Mireles DO [Primary Care Provider] - Charges/Coding Visit Charges Inpatient E&M: 12515 Disch Hosp
[2021-10-23] MEDS: Enoxaparin 30 MG/0.3 ML Syringe SC (09:28)
[2021-10-23] MEDS: dexAMETHasone 4 MG/ML Vial 6 MG IV (09:29)
[2021-10-23] MEDS: Pantoprazole Sodium 20 MG Tablet PO (09:29)
[2021-10-23] MEDS: Levothyroxine 88 MCG Tablet PO (09:29)
[2021-10-23] MEDS: Aspirin 81 MG TAB.CHEW PO (09:29)
[2021-10-23] MEDS: Insulin Human 75/25 Kwickpen 30 UNIT SC (09:32)
[2021-10-23 11:35] LABS: Bedside Glucose 123 mg/dL (70-110)
== END 2021-10-23 15:05 | disposition home or self-care (01) | DRG 177 ==
LOC: ED 21:17 → MS3 22:31
PROVIDERS: Admitting Provider Family Medicine; Emergency Provider Emergency Medicine; PCP Family Medicine; Visit Provider Internal Medicine
DX: U07.1 COVID-19 (principal); J12.82 Pneumonia due to coronavirus disease 2019; J96.01 Acute respiratory failure with hypoxia; I95.9 Hypotension, unspecified; E11.9 Type 2 diabetes mellitus without complications; Z79.4 Long term (current) use of insulin; K21.9 Gastro-esophageal reflux disease without esophagitis; E78.5 Hyperlipidemia, unspecified; E03.9 Hypothyroidism, unspecified; E78.00 Pure hypercholesterolemia, unspecified; Z79.82 Long term (current) use of aspirin; Z28.3 Underimmunization status; E66.9 Obesity, unspecified; Z66 Do not resuscitate
CPT/HCPCS: 36415; 71045; 71275; 80053; 82728; 82962; 83605; 83615; 83735; 83880; 84100; 84145; 84484; 85025; 85379; 86140; 87426; 87449; 93005; 94762; 99251; 99285; J7030; J7040; J7050; Q9967; A4216; G0463; J0248

== ENCOUNTER 2021-11-08 13:18 | Outpatient (CLI) | payer MEDICARE, SELFPAY ==
--- NOTE | 2021-11-08 13:22 | RAD_ITS ---
STUDY: X-RAY CHEST REASON FOR EXAM: Female, 71 years old. COUGH TECHNIQUE: PA and lateral views of the chest. COMPARISON: Comparison is made with prior study dated 10/21/2021. FINDINGS: There now is evidence of the bilateral pulmonary infiltrates worse in the right hemithorax and a preferential peripheral distribution. Pneumonitis associated with Covid should be ruled out. There is no demonstrated pleural abnormality. Normal size heart. Normal mediastinum and terrie. Normal visualized pulmonary arteries. There is atherosclerotic tortuosity of the aortic arch and descending thoracic aorta. There are diffuse degenerative changes of the visualized thoracic spine. Normal visualized ribs, clavicles, and shoulders. There is no demonstrated abnormality of the visualized soft tissue structures of the upper abdomen. RAD/Chest PA and Lateral IMPRESSION: Bilateral pulmonary infiltrates worse in the right hemithorax. The the right pulmonary infiltrate has a preferential distribution. Pneumonitis associated with Covid should be ruled out. Electronically Signed: Chicho Gaffney MD at 13:56 EST ,
== END 2021-11-08 23:59 | disposition short-term general hospital (02) ==
LOC: RAD 13:20
PROVIDERS: PCP Family Medicine; Referring Provider Family Medicine; Visit Provider Family Medicine
DX: R05.9 Cough, unspecified (principal)
CPT/HCPCS: 71046

== ENCOUNTER → 2022-04-05 | Outpatient (CLI) | payer MEDICARE, SELFPAY ==
--- NOTE | 2022-04-05 10:05 | RAD_ITS ---
STUDY: X-RAY CHEST REASON FOR EXAM: Female, 71 years old. CHRONIC COUGH TECHNIQUE: PA and lateral views of the chest. COMPARISON: 11/08/2021 FINDINGS: There is hyperinflation of the lungs consistent with chronic obstructive lung disease (COPD). There is no demonstrated pleural abnormality. Normal size heart. Normal mediastinum and terrie. Normal visualized pulmonary arteries. There is atherosclerotic tortuosity of the aortic arch and descending thoracic aorta. Normal visualized thoracic spine. Normal visualized ribs, clavicles, and shoulders. There is no demonstrated abnormality of the visualized soft tissue structures of the upper abdomen. RAD/Chest PA and Lateral IMPRESSION: Emphysema without pneumonia or atelectasis. Electronically Signed: Ralph Nelson MD at 17:00 EDT ,
== END | disposition home or self-care (01) ==
LOC: RAD 10:02
PROVIDERS: PCP Family Medicine; Referring Provider Family Medicine; Visit Provider Family Medicine
DX: J43.9 Emphysema, unspecified (principal)
CPT/HCPCS: 71046

== ENCOUNTER 2022-09-15 11:02 | Emergency (ER) | payer MEDICARE, SELFPAY ==
[2022-09-15 11:02] VITALS: BP 130/89; PULSE 75; RESP 16; TEMP 35.9; O2SAT 96; BMI 35.2
--- NOTE | 2022-09-15 12:20 | CT_ITS ---
STUDY: CT ABDOMEN AND PELVIS WITH CONTRAST REASON FOR EXAM: Female, 71 years old. One day history of right upper quadrant pain. Prior cholecystectomy. RADIATION DOSAGE (If Supplied By Facility): CTDIvol = ( 20.34 ) mGy, DLP = ( 1276.71 ) mGycm TECHNIQUE: Transaxial images were obtained from the dome of the diaphragm to the symphysis pubis without oral contrast. IV 100mL Isovue-300 was administered. Sagittal and coronal images were reconstructed. Individualized dose optimization techniques were used for this CT. COMPARISON: None. FINDINGS: Minimal increased linear markings at the lung bases. Coronary artery calcification. Minimal amount of the intrahepatic biliary ductal air in keeping with prior cholecystectomy and possible common bile duct exploration. Fatty infiltration liver. There are surgical clips in the gallbladder fossa consistent with a prior cholecystectomy. There are multiple benign calcified granulomata of the spleen. Normal pancreas. Normal bilateral adrenal glands. Normal right kidney. Normal left kidney. There is a small hiatal hernia. Normal small intestine. There are scattered colonic diverticula consistent with diverticulosis. The appendix is visualized and appears normal. There is diffuse atherosclerotic calcification of the abdominal aorta and its major visceral branches, without a demonstrated aneurysm. Normal inferior vena cava. Normal retroperitoneum. Normal urinary bladder. Minimal degree of subcutaneous increased markings in the right and left anterior abdominal wall. There are diffuse degenerative changes of the visualized lumbar spine. Mild degree of loss of height of the superior endplate of the L1 vertebrae. CT/Abdomen/Pelvis W IV Cont ONLY IMPRESSION: Status post cholecystectomy. Fatty infiltration of the liver. Mild degree of central intrahepatic biliary air in keeping with prior cholecystectomy and possible biliary ductal exploration. Electronically Signed: Chicho Gaffney MD at 13:23 EST ,
--- NOTE | 2022-09-15 12:21 | EDS_ITS ---
HPI HPI - GI History of Present Illness Chief Complaint: Abd Pain Narrative Narrative: 71-year-old female presents with abdominal pain on the right side that began at approximately 7 PM last evening, almost 17 hours ago. She has past abdominal surgery history of cholecystectomy but she states she still makes gallstones, and take something to break them up on occasion. She made hamburger helper with taco seasoning last evening at around 530, then developed abdominal pain at 7. She denies any fevers or chills. No nausea or vomiting. No diarrhea or problems with bowel movements but she feels as if her pain is moving along the right side. It is moving into the right lower quadrant. She denies any dysuria or hematuria. She thinks she may have appendicitis because that is how her relative had presented with her case of appendicitis. No exacerbating or alleviating factors. [facility] Medical History Diabetes mellitus, type 2 GERD (gastroesophageal reflux disease) HLD (hyperlipidemia) Hypothyroidism Obesity Home Medications aspirin 81 mg capsule 81 mg PO QHS blood thinner 10/21/21 [History Last Taken 10/20/21] levothyroxine 88 mcg tablet (Synthroid) 88 mcg PO DAILY thyroid 10/21/21 [History Last Taken 10/21/21] omeprazole 20 mg capsule,delayed release 20 mg PO DAILY GERD 10/21/21 [History Last Taken 10/21/21] simvastatin 20 mg tablet (Zocor) 20 mg PO QHS cholesterol 10/21/21 [History Last Taken 10/20/21] dexamethasone 6 mg tablet (Decadron) 6 mg PO DAILY #7 tabs 10/23/21 [Rx Last Taken Unknown] doxycycline hyclate 100 mg capsule 100 mg PO BID #14 caps 10/23/21 [Rx Last Taken Unknown] insulin NPH-regular 70-30 U-100 insulin 100 unit/mL subcutaneous pen 35 unit (0.35 mL) subcut DAILY diabetes #0 mL 10/23/21 [Rx Last Taken 10/21/21] insulin NPH-regular 70-30 U-100 insulin 100 unit/mL subcutaneous pen 35 unit (0.35 mL) subcut QHS diabetes #0 mL 10/23/21 [Rx Last Taken 10/20/21] Allergy/AdvReac Type Severity Reaction Status Date / Time niacin Allergy Hives Verified 09/15/22 11:04 Penicillins Allergy Itching Verified 09/15/22 11:04 ciprofloxacin [From Cipro] AdvReac Other Verified 09/15/22 11:04 Family History Mother Heart disease Hypertension Myocardial infarction Diabetes Father Heart disease Myocardial infarction Surgical History History of bilateral tubal ligation Social History household members: significant other Smoking Status: Never smoker alcohol intake: never substance use type: does not use ROS ROS ED ROS Narrative Constitutional: No fever, no chills. HEENT: No sore throat. No neck pain. No loss of vision. No rhinorrhea. Cardiovascular: No chest pain. No palpitations. No pedal edema. Respiratory: No cough, no shortness of breath. Abdominal: Right upper and lower abdominal. No nausea. No vomiting. No diarrhea. Genitourinary: No dysuria. No hematuria. Musculoskeletal: No myalgias. No arthralgias. Neurologic: No headaches. No dizziness. No lightheadedness. Skin: No rash. No change in color. Psychiatric: No depression. No anxiety. EXAM Physical Exam Narrative Exam Narrative: Afebrile. Vital signs noted. HEENT: Normocephalic. Atraumatic. PERRL, EOMI. Neck soft and supple. No point tenderness or step off. Cardiovascular: Regular rate and rhythm. No murmurs, rubs, or gallops appreciated. Respiratory: No tachypnea. Lungs clear to auscultation bilaterally. Gastrointestinal: Abdomen soft, mild tenderness along right flank, with normoactive bowel sounds. No rebound or guarding. No peritoneal signs. Neurological: Awake. Alert. Pleasant. Nonfocal, nonlateralizing. Skin: No rash. Normal color. No pallor. Musculoskeletal: No pedal edema. Full range of motion extremities. Const Vital Signs: 09/15/22 11:02 Temperature 96.7 F L Temperature Source Temporal Pulse Rate 75 Respiratory Rate 16 Blood Pressure 130/89 H Blood Pressure Mean 102 Pulse Ox 96 Oxygen Delivery Method Room Air MDM MDM MDM Narrative Medical decision making narrative: Comprehensive work-up was pursued. She declined analgesics currently. I will obtain a CBC, CMP, and lipase along with urinalysis and CT imaging with IV contrast. She was bolused normal saline 1 L intravenously. CBC is grossly normal with a normal white count of 7.0, hemoglobin 15.0, hematocrit 42.7. CMP shows chloride elevated at 110 with normal anion gap of 5. Glucose appropriately elevated at 155. LFTs are normal with a normal AST and ALT. Alk phos is slightly elevated at 135 which I think is nonspecific. Lipase normal at 161. Urinalysis shows no evidence of infection or red blood cells. CT of the abdomen and pelvis shows no acute process, appendix appears normal. At this point in time, upon repeat examination she is resting comfortably on the cot. Her abdomen remains soft. I am unsure as to the etiology of her abdominal pain, but she was reassured that her appendix looks normal and that she does not have acute appendicitis currently. CARLY can be discharged safely home with follow- up. Return instructions to the emergency department were reviewed. Disposition is discharged home in stable condition. Lab Data Attestation: I reviewed the patient's lab results. Labs: Laboratory Results - last 24 hr 09/15/22 09/15/22 09/15/22 11:37 11:37 11:37 WBC 7.0 RBC 4.70 Hgb 15.0 Hct 42.7 MCV 90.9 MCH 31.9 MCHC 35.1 RDW Std Deviation 43.4 RDW Coeff of Kyle 13.1 Plt Count 180 MPV 10.1 Immature Gran % (Auto) 0.400 Neut % (Auto) 61.3 Lymph % (Auto) 25.0 [place] % (Auto) 9.9 Eos % (Auto) 3.0 Baso % (Auto) 0.4 Absolute Neuts (auto) 4.3 Absolute Lymphs (auto) 1.75 Nucleated RBC % 0 Sodium 141 Potassium 4.0 Chloride 110 H Carbon Dioxide 26.0 Anion Gap 5 BUN 18 Creatinine 1.11 H Estim Creat Clear Calc 37.90 Est GFR (MDRD) Af Amer 62 Est GFR (MDRD) Non-Af 51 L BUN/Creatinine Ratio 16.2 Glucose 155 H Calcium 10.1 Total Bilirubin 1.20 H AST 21 ALT 21 Alkaline Phosphatase 135 H Total Protein 6.7 Albumin 3.4 Globulin 3.3 Albumin/Globulin Ratio 1.0 Lipase 161 Urine Color Yellow Urine Clarity Clear Urine pH 6.5 Ur Specific Prosser 1.010 Urine Protein Negative Urine Glucose (UA) Normal Urine Ketones Negative Urine Occult Blood Negative Urine Nitrite Negative Urine Bilirubin Negative Urine Urobilinogen Normal Ur Leukocyte Esterase 25 H Urine RBC 0 SEEN Urine WBC 0-5 SEEN Ur Squamous Epith Cells 0-5 SEEN Urine Bacteria 0 SEEN Urine Mucus 0 SEEN Radiography Diagnostic Testing: Clinical Impression(s) from Imaging Studies Abdomen/Pelvis CT 09/15/22 12:20 IMPRESSION: Status post cholecystectomy. Fatty infiltration of the liver. Mild degree of central intrahepatic biliary air in keeping with prior cholecystectomy and possible biliary ductal exploration. Electronically Signed: Chicho Gaffney MD at 13:23 EST , Discharge Plan Triage Chief Complaint: Abd Pain ED Provider: Bradly Villanueva Dx/Rx/DC Orders Clinical Impression: Abdominal pain Instructions: ED Abdominal Pain Unkn Cause Fem Prescriptions: No Action levothyroxine [Synthroid] 88 mcg Tablet 88 mcg PO DAILY simvastatin [Zocor] 20 mg Tablet 20 mg PO QHS omeprazole 20 mg Capsule,Delayed Release(Dr/Ec) 20 mg PO DAILY aspirin 81 mg Capsule 81 mg PO QHS doxycycline hyclate 100 mg capsule 100 mg PO BID Qty: 14 0RF dexamethasone [Decadron] 6 mg tablet 6 mg PO DAILY Qty: 7 0RF insulin NPH and regular human 100 unit/mL (70-30) Insulin Pen 35 unit SUBCUT QHS Qty: 0 0RF insulin NPH and regular human 100 unit/mL (70-30) Insulin Pen 35 unit SUBCUT DAILY Qty: 0 0RF Primary Care Provider: Dave Mireles Referrals: Dave Mireles DO [Primary Care Provider] - 3-5 Days if not improving Disposition Disposition: Home, Self Care
[2022-09-15 12:32] LABS: Bacteria 0 SEEN /hpf (None Seen); Mucous, Urine 0 SEEN /hpf (<or=2+); Red Blood Cells-Urine 0 SEEN /hpf (0-5)
[2022-09-15] MEDS: 0.9% Normal Saline 1,000 ML 1000 ML IV (12:32)
[2022-09-15 12:33] LABS: Color, Urine Yellow (Yellow); Glucose, Dipstick Normal (Normal); Ketone-Dipstick Negative (Negative); Leukocyte Esterase-Dipstick 25 /ul (Negative); Nitrite-Dipstick Negative (Negative); Occult Blood-Urine Negative /ul (Negative); Protein-Dipstick Negative (Negative); Urine Bilirubin Dipstick Negative (Negative); Urine Clarity Clear (Clear); Urine Urobilinogen Normal (Normal); Urine pH 6.5 (5.0 - 8.0)
[2022-09-15 12:39] LABS: Absolute Lymphocyte Count 1.75 X10^3/uL (0.83-4.51); Absolute Neutrophil Count 4.3 X10^3/uL (2.0-7.7); Basophil# 0.03 X10^3/uL; Basophil% 0.4 % (0-1); Eosinophil# 0.21 X10^3/uL; Hematocrit 42.7 % (37-47); Lymphocyte # 1.75 X10^3/ul (0.83-4.51); Mean Corp Hgb Conc 35.1 g/dL (32-36); Mean Corpuscular Hgb 31.9 pg (27.0-32.0); Mean Corpuscular Volume 90.9 fL (81-99); Mean Platelet Vol. 10.1 fl (6.2-12.0); Monocyte# 0.69 X10^3/uL; Monocyte% 9.9 % (0-10); NRBC Flagged by Analyzer 0 % (0-5); Neutrophil # 4.29 X10^3/uL (2.7-7.7); Neutrophil % 61.3 % (47-70); Platelet Count 180 K/mm3 (150-450); RBC Distribution Width CV 13.1 % (11.6-14.6); RBC Distribution Width SD 43.4 fl (35.1-43.9)
[2022-09-15 12:41] LABS: Squamous Epithelial Cells - UA 0-5 SEEN /hpf (5-10); White Blood Cells 0-5 SEEN /hpf (0-5)
[2022-09-15 12:49] LABS: AST(SGOT) 21 U/L (15-37); Alanine Aminotransfer ALT/SGPT 21 U/L (13-56); Albumin, Serum 3.4 g/dL (3.2-5.0); Alkaline Phosphatase 135 U/L (45-117); Anion Gap 5 (5-15); BUN 18 mg/dL (7-18); BUN/Creat Ratio 16.2 RATIO (10-20); Calcium,Total 10.1 mg/dL (8.5-10.1); Chloride 110 mmol/L (98-107); Creatinine, Serum 1.11 mg/dL (0.55-1.02); EST Glomerular Filtration Rate 51 mL/min (>60); Est Glom Filt Rate - Afr Amer 62 mL/min (>60); Globulin 3.3 g/dL (2.2-4.2); Glucose 155 mg/dL (74-106); Lipase 161 U/L (73-393); Protein, Total 6.7 g/dL (6.4-8.2); Sodium Level 141 mmol/L (136-145)
== END 2022-09-15 15:09 | disposition home or self-care (01) ==
PROVIDERS: Emergency Provider Emergency Medicine; PCP Family Medicine; Visit Provider Emergency Medicine
DX: R10.9 Unspecified abdominal pain (principal); E11.9 Type 2 diabetes mellitus without complications; E78.5 Hyperlipidemia, unspecified; Z90.49 Acquired absence of other specified parts of digestive tract
CPT/HCPCS: 74177; 80053; 81001; 83690; 85025; 96360; 99283; J7030; Q9967; A4216